=== PATIENT | female | born 1980 | race Caucasian/White ===

== ENCOUNTER 2019-03-02 17:55 | Emergency (ER) | payer SELFPAY ==
[~2019-03-02] VITALS: Ht 170.2 cm; Wt 95.3 kg
--- NOTE | 2019-03-02 19:00 | NUR ---
PT IS IN ROOM # 1A. DR PEDERSEN EVALUATED THE PT.
--- NOTE | 2019-03-02 19:58 | NUR ---
Patient discharged to home in stable conditon. Written and verbal after care instructions given. Patient verbalizes understanding of instructions. Dressing applied per MD orders. Patient tolerated well. Ambulating with steady gait. Patient refused TDAP vaccine. explained risks / benefits. Patient declined.
[2019-03-02] MEDS ORDERED: TDAP DIPH,PERTUSS,TET VAC/PF 0.5 ML DISP.SYRIN IM ONE (20:00)
[2019-03-02 20:43] VITALS: BP 128/71
== END 2019-03-02 19:58 | disposition home or self-care (01) ==
LOC: ER 17:55
DX: S61.210A Laceration without foreign body of right index finger without damage to nail, initial encounter (principal); W26.0XXA Contact with knife, initial encounter; Y93.89 Activity, other specified; Y92.89 Other specified places as the place of occurrence of the external cause; Y99.8 Other external cause status
CPT/HCPCS: A4663

== ENCOUNTER 2019-03-03 19:28 | Emergency (ER) | payer SELFPAY ==
[~2019-03-03] VITALS: Ht 170.2 cm; Wt 99.8 kg
--- NOTE | 2019-03-03 20:11 | NUR ---
PATIENT WAS MSE BY DR DUNN IN [facility].
[2019-03-03 20:27] VITALS: BP 105/75
--- NOTE | 2019-03-03 20:28 | NUR ---
Patient discharged to home in stable condition. Written and verbal after care instructions given. Patient verbalizes understanding of instructions. Will call her PMD for tetanus Vac.
== END 2019-03-03 20:30 | disposition home or self-care (01) ==
LOC: ER 19:28
DX: S61.210D Laceration without foreign body of right index finger without damage to nail, subsequent encounter (principal); X58.XXXD Exposure to other specified factors, subsequent encounter
CPT/HCPCS: A4663